=== PATIENT | male | born 1975 | race Two or more races ===

== ENCOUNTER 2017-07-30 20:00 | Emergency (ER) | payer OTHER ==
[2017-07-31] MEDS: traMADol 50 MG TAB PO (00:44)
== END 2017-07-31 01:52 | disposition home or self-care (01) ==
LOC: M ED 20:00
DX: S60.212A Contusion of left wrist, initial encounter (principal); W00.9XXA Unspecified fall due to ice and snow, initial encounter; Y92.9 Unspecified place or not applicable; Y93.9 Activity, unspecified; Z88.0 Allergy status to penicillin
CPT/HCPCS: 73110

== ENCOUNTER 2018-06-04 11:57 | Emergency (ER) | payer OTHER ==
[2018-06-04] MEDS: NS 1,000 ML IV (12:15)
[2018-06-04 12:23] LABS: BEDSIDE GLUCOSE 337 MG/DL (70-105)
[2018-06-04 12:34] LABS: VENOUS BASE EXCESS -3.1 (-2.0-2.0); VENOUS HCO3 21.7 MEQ/L (23.0-27.0); VENOUS O2 SATURATION 90.5 % (60.0-80.0); VENOUS PARTIAL PRESSURE CO2 38.4 mmHg (38.0-50.0); VENOUS PARTIAL PRESSURE O2 59.6 mmHg (30.0-50.0); VENOUS STANDARD HCO3 21.7 MEQ/L; VENOUS TOTAL CO2 22.9 MEQ/L (24.0-28.0)
[2018-06-04 12:39] LABS: BASO % 0.4 % (0.0-1.0); EOS # 0.1 10^3/uL (0.0-0.50); EOS % 1.7 % (0.0-3.0); HEMATOCRIT 42.4 % (42.0-52.0); HEMOGLOBIN 15.3 g/dl (13.5-17.5); IMMATURE GRANULOCYTE % 0.2 % (0-3.0); LYMPH # 2.5 10^3/uL (1.5-4.5); LYMPH % 52.9 % (24.0-44.0); MEAN CORPUSCULAR HEMOGLOBIN 30.5 pg (27.0-33.0); MEAN CORPUSCULAR HGB CONC 36.1 g/dl (32.0-36.5); MEAN CORPUSCULAR VOLUME 84.6 fl (80.0-96.0); MONO # 0.5 10^3/uL (0.0-0.8); MONO % 11.6 % (0.0-5.0); NEUTROPHILS # 1.5 10^3/uL (1.8-7.7); NEUTROPHILS % 33.2 % (36.0-66.0); PLATELET COUNT, AUTOMATED 239 10^3/uL (150-450); RED BLOOD COUNT 5.01 10^6/uL (4.30-6.10); RED CELL DISTRIBUTION WIDTH 11.6 % (11.5-14.5); WHITE BLOOD COUNT 4.7 10^3/uL (4.0-10.0)
[2018-06-04 13:05] LABS: ALBUMIN 4.1 GM/DL (3.2-5.2); ALBUMIN/GLOBULIN RATIO 1.32 (1.00-1.93); ALKALINE PHOSPHATASE 89 U/L (45-117); ALT/SGPT 125 U/L (12-78); ANION GAP 9 MEQ/L (8-16); AST/SGOT 47 U/L (7-37); BILIRUBIN,DIRECT 0.2 MG/DL (0.0-0.2); BILIRUBIN,TOTAL 0.5 MG/DL (0.2-1.0); BLOOD UREA NITROGEN 14 MG/DL (7-18); CALCIUM LEVEL 9.1 MG/DL (8.5-10.1); CARBON DIOXIDE LEVEL 26 MEQ/L (21-32); CHLORIDE LEVEL 101 MEQ/L (98-107); CREATININE FOR GFR 0.96 MG/DL (0.70-1.30); GLOMERULAR FILTRATION RATE > 60.0 (>60); GLUCOSE, FASTING 332 MG/DL (70-100); LIPASE 156 U/L (73-393); POTASSIUM SERUM 4.5 MEQ/L (3.5-5.1); SODIUM LEVEL 136 MEQ/L (136-145); TOTAL PROTEIN 7.2 GM/DL (6.4-8.2)
[2018-06-04 13:25] LABS: ACETONE/KETONE 8.45 MG/DL (<2.81); ETHYL ALCOHOL (ETHANOL) < 0.003 % (0.000-0.010)
[2018-06-04 13:28] LABS: KETONE, URINE AUTO RFX 1+ mg/dL (NEGATIVE); LEUKOCYTE ESTERASE UR AUTO RFX NEGATIVE (NEGATIVE); NITRITE, URINE AUTO RFX NEGATIVE (NEGATIVE); RBC, URINE AUTO RFX 1 /HPF (0-3); SPECIFIC GRAVITY UR AUTO RFX 1.031 (1.002-1.035); SQUAM EPITHELIAL CELL UR AURFX 0 /HPF (0-6); WBC, URINE AUTO RFX 1 /HPF (0-3)
[2018-06-04] MEDS: metFORMIN (GLUCOPHAGE) 500 MG TAB PO (15:01)
[2018-06-04 15:15] LABS: ESTIMATED AVERAGE GLUCOSE 235 MG/DL (60-110); HEMOGLOBIN A1c 9.8 %
== END 2018-06-04 15:57 | disposition home or self-care (01) ==
LOC: M ED 11:57
DX: E11.9 Type 2 diabetes mellitus without complications (principal); Z79.899 Other long term (current) drug therapy; Z88.0 Allergy status to penicillin
CPT/HCPCS: 93005

== ENCOUNTER → 2018-09-28 | Outpatient (CLI) | payer OTHER ==
[~2018-09-28] MED LIST: AMIT25TA PO; D-CA1KIT XX; IBUP80TA; METF500T13 PO
[2018-09-28 13:51] LABS: INR 1.06; PARTIAL THROMBOPLASTIN TIME 28.7 SECONDS (25.4-37.6); PROTHROMBIN TIME 13.9 SECONDS (12.1-14.4)
[2018-09-28 14:31] LABS: ALBUMIN 4.7 GM/DL (3.2-5.2); ALT/SGPT 33 U/L (12-78); BILIRUBIN,DIRECT 0.2 MG/DL (0.0-0.2); BILIRUBIN,TOTAL 0.5 MG/DL (0.2-1.0); CHOLESTEROL LEVEL 138 MG/DL (<200); CHOLESTEROL RISK RATIO 2.509 (<5); FERRITIN 142 NG/ML (26-388); HDL CHOLESTEROL 55 MG/DL (>40); IRON (FE) 131 UG/DL (65-175); LDL CHOLESTEROL 65 MG/DL (<100); NON-HDL-C 83 MG/DL; TOTAL IRON BINDING CAPACITY 374 UG/DL (250-450); TOTAL PROTEIN 7.7 GM/DL (6.4-8.2); TRIGLYCERIDES LEVEL 89 MG/DL (<150)
[2018-09-29 10:59] LABS: HEPATITIS B SURFACE ANTIBODY NEGATIVE (POSITIVE)
[2018-09-29 11:09] LABS: HEPATITIS B SURFACE ANTIGEN NEGATIVE (NEGATIVE)
[2018-09-29 11:37] LABS: HEPATITIS C VIRUS ABY INDEX 0.1 INDEX (<0.8)
[2018-10-02 13:50] LABS: ANTI-MITOCHONDRIAL ANTIBODY <20.0 Units (0.0-20.0); ANTI-SMOOTH MUSCLE ANTIBODY 9 Units (0-19); ANTINUCLEAR ANTIBODIES DIRECT Negative (Negative); CERULOPLASMIN 20.1 mg/dL (16.0-31.0); HEPATITIS A IgG TOTAL Positive (Negative); HEPATITIS B CORE ANTIBODY IGG Negative (Negative); IGASUB3 61.2 mg/dL (13.4-97.9); IgA SERUM (part of Subclasses) 221 mg/dL (90-386); LIVER-KIDNEY MICROSOMAL ABY <20.1 Units (0.0-20.0); TISSUE TRANSGLUTAMINASE IgA 3 U/mL (0-3)
== END ==
LOC: M LAB 12:35
PROVIDERS: ATTEND Internal Medicine Gastroenterology
DX: R94.5 Abnormal results of liver function studies (principal)

== ENCOUNTER → 2018-10-07 | Outpatient (CLI) | payer OTHER ==
--- NOTE | 2018-10-07 09:49 | REP ---
MRI RIGHT ANKLE: TECHNIQUE: Sagittal proton density, STIR, axial proton density fat sat, T1, coronal proton density, STIR. The Achilles tendon is intact. There has been prior surgery at the posterior calcaneus, at the distal Achilles insertion site with a single suture anchor in the posterior aspect of the calcaneus. There is very mild marrow edema in the posterolateral aspect of the calcaneus. There is very mild ill-defined soft tissue edema anterior to the distal Achilles tendon, just superior to the calcaneus. No other abnormal bone marrow signal is seen. The Anterior tibial posterior, flexor hallucis longus, flexor digitorum longus and peroneal tendons are all intact without significant tenosynovitis. The anterior and posterior talofibular, calcaneal fibular and deltoid ligaments appear intact. Plantar tendon is intact. There is no evidence of plantar fasciitis. There is a normal amount of joint fluid. No ganglion cyst is seen. No osteochondral defect is seen at the tibiotalar joint. IMPRESSION: Single suture anchor in the posterior calcaneus at the distal Achilles tendon insertion site. Very mild narrow edema is seen in the posterolateral calcaneus. Mild ill-defined soft tissue edema anterior to the distal Achilles tendon may represent mild peritenonitis. I see no other significant finding. Electronically Signed by Wilfredo Schuster MD 10/07/2018 03:12 P
== END ==
LOC: M RAD 07:23
PROVIDERS: ATTEND Physician Assistant Surgical
DX: M76.61 Achilles tendinitis, right leg (principal); Z98.890 Other specified postprocedural states

== ENCOUNTER → 2018-10-25 | Outpatient (CLI) | payer OTHER ==
--- NOTE | 2018-10-28 19:30 | SLEEPCENT ---
DATE OF PROCEDURE: 10/25/2018 ORDERED BY: Daisy Jewell Nocturnal polysomnography was performed for evaluation of sleep physiology in this patient with difficulty with sleep maintenance. 6 hours and 14 minutes of data were reviewed. There were 257 minutes of sleep identified. Sleep latency was normal at 10 minutes, rapid eye movement (REM) sleep was delayed at 146 minutes. Sleep architecture showed fragmentation and frequent brief arousals. Overall sleep efficiency was 72%. The electrocardiogram showed a sinus rhythm with an average heart rate of 65 beats per minute. EEG showed coarsening in background possibly medication effect. There were only four respiratory events identified of 10 seconds in duration or greater for an apnea-hypopnea index of 0.9. Snoring was noted but arousals from respiratory events occurred only 0.4 times per hour in total. There were no significant oxygen desaturations. Significant activity was, however, seen in the limb leads. There was only one train of 30 events but limb movement arousal index 12.1. IMPRESSION: Periodic limb movement disorder (G47.61). Limb movement arousal index 12.1. RECOMMENDATIONS: Interventions to reduce the frequency of arousal from limb activity should improve the patient's continuity of sleep.
== END ==
LOC: M SLEEP 20:06
PROVIDERS: ATTEND Nurse Practitioner Adult Health
DX: G47.61 Periodic limb movement disorder (principal)

== ENCOUNTER 2018-11-07 21:22 | Emergency (ER) | payer OTHER ==
[~2018-11-07] VITALS: Ht 172.7 cm; Wt 79.1 kg
[2018-11-07] MEDS ORDERED: methylPREDNISolone SUSP 40 MG/ML (DEPO-medrol) VIAL (J1030) IM ONE (23:15)
[2018-11-07 23:28] VITALS: BP 126/74
== END 2018-11-07 23:33 | disposition home or self-care (01) ==
LOC: M ED 21:22
DX: M54.32 Sciatica, left side (principal); E11.9 Type 2 diabetes mellitus without complications; Z79.84 Long term (current) use of oral hypoglycemic drugs; Z88.0 Allergy status to penicillin
CPT/HCPCS: 96372; 99284; J1030

== ENCOUNTER 2018-12-01 06:14 | Day surgery (SDC) | payer OTHER ==
[~2018-12-01] VITALS: Ht 172.7 cm; Wt 75.3 kg
[~2018-12-01 06:14] MED LIST changes: +CLINDAMYCIN 600 MG in APPROPRIATE DILUENT 1 EA IV ONE; +DULO1CAP2 PO; +IBUP-1114 PO; +LR 1,000 ML IV ONE; +META1TAB22 PO; +ROPI0.5T PO; +SIMV20TA2 PO; +TIZA4TAB4 PO
[2018-12-01] MEDS ORDERED: PROPOFOL 200 MG/20 ML VIAL As Ordered ONE (07:04)
[2018-12-01] MEDS ORDERED: LIDOCAINE 2% INJ 100 MG/5 ML SDV (FOR ANES.) As Ordered ONE (07:04)
[2018-12-01] MEDS ORDERED: MIDAZOLAM INJ 2 MG/2 ML VIAL (J2250) As Ordered ONE (07:05)
[2018-12-01] MEDS ORDERED: fentaNYL 100 MCG/2 ML INJECTION (J3010) As Ordered ONE (07:05)
[2018-12-01] MEDS ORDERED: ONDANSETRON 4MG/2ML VIAL (J2405) As Ordered ONE (07:05)
[2018-12-01] MEDS ORDERED: BUPIVACAINE HCL 0.5% 10 ML VIAL As Ordered ONE (07:09)
[2018-12-01] MEDS ORDERED: LIDOCAINE 1% MDV 20ML VIAL As Ordered ONE (07:09)
[2018-12-01] MEDS ORDERED: dexameTHASONE 4 MG/ML 1ML VIAL (J1100) As Ordered ONE (07:18)
[2018-12-01] MEDS ORDERED: KETOROLAC 60 MG/2 ML VIAL (J1885) As Ordered ONE (07:58)
[2018-12-01] MEDS ORDERED: NORCO, ANEXSIA 5/325MG TABLET (HYDROcodone/ACETAMINOPHEN) As Ordered ONE (09:18)
[2018-12-01] MEDS ORDERED: fentaNYL 100 MCG/2 ML INJECTION (J3010) IV PRN (09:30)
[2018-12-01] MEDS ORDERED: NORCO, ANEXSIA 5/325MG TABLET (HYDROcodone/ACETAMINOPHEN) PO PRN (09:30)
[2018-12-01] MEDS ORDERED: LR 1,000 ML IV SCH (09:30)
[2018-12-01] MEDS ORDERED: ONDANSETRON 4MG/2ML VIAL (J2405) IV PRN (09:30)
[2018-12-01 09:50] VITALS: BP 122/81
--- NOTE | 2018-12-01 10:43 | RO ---
DATE OF PROCEDURE: 12/01/2018 PREPROCEDURE DIAGNOSIS: Right gastrocnemius/Achilles equinus. POSTPROCEDURE DIAGNOSIS: Right gastrocnemius/Achilles equinus. PROCEDURE: Right gastrocnemius recession. SURGEON: Dr. Sathya Jin [facility]: ANESTHESIA: Monitored anesthesia care. Preoperative injection of 20 mL of 1:1 mixture of 1% lidocaine plain and 1/2% Marcaine plain. ESTIMATED BLOOD LOSS: Minimal. MATERIALS: #4-0 Vicryl, #4-0 nylon. INJECTABLES: None. COMPLICATIONS: None. CONDITION: Stable. DESCRIPTION OF PROCEDURE: Herrera Mijares is a 43-year-old male who presents to [facility] with chronic painful Achilles tendon. He has had posterior heel surgery, but persists with tightness and pulling sensation in the back of his calf. He presents today for release of the gastrocnemius tendon aponeurosis. The patient site and side were identified and marked in preoperative holding area. Consent was reviewed and obtained. The risks, complications and alternatives to the procedure were explained to the patient in detail and all questions were answered. The patient was brought to the operating room and placed on the operating room table in supine position. Monitored anesthesia care was given by the anesthesia team. The patient was transferred to prone position. Preoperative injection of 20 mL of 1:1 mixture of 1% lidocaine plain and 0.25% Marcaine plain were injected to the calf. The patient received clindamycin preoperatively. A tourniquet was applied to the right thigh and inflated at 250 mmHg. A linear incision was made at the mid point of the calf just medial to the center line. Incision was made with #15 blade. Dissection was carried until the gastrocnemius fascia was identified. The sural nerve was identified and protected during the procedure. A transverse tenotomy was performed taking care not to cut into the muscle belly. Plantaris tendon was noted to be restricting motion and this too was resected. Improvement in dorsiflexion at the ankle was noted. The site was irrigated with normal saline. The incision was closed with #4-0 Vicryl and #4-0 nylon. Sterile dressings were applied. The tourniquet was deflated. A posterior splint was applied. The patient was brought to the postanesthesia care unit (PACU) with vital signs stable and neurovascular status intact. He will be nonweight bearing with crutches. He will followup in the office in two days.
== END 2018-12-01 10:32 | disposition home or self-care (01) ==
LOC: M SDC 06:14
PROVIDERS: ATTEND Podiatrist Foot & Ankle Surgery
DX: M24.571 Contracture, right ankle (principal); K21.9 Gastro-esophageal reflux disease without esophagitis; F41.9 Anxiety disorder, unspecified; Z88.0 Allergy status to penicillin; Z79.84 Long term (current) use of oral hypoglycemic drugs; E11.9 Type 2 diabetes mellitus without complications; G25.81 Restless legs syndrome; Z79.899 Other long term (current) drug therapy
CPT/HCPCS: 27687; J1100; J1885; J2250; J2405; J3010

== ENCOUNTER 2019-03-09 13:05 | Emergency (ER) | payer OTHER ==
[~2019-03-09] VITALS: Ht 172.7 cm; Wt 78.2 kg
[~2019-03-09 13:05] MED LIST changes: -CLINDAMYCIN 600 MG in APPROPRIATE DILUENT 1 EA IV ONE; -DULO1CAP2 PO; +DULO1CAP5 PO; -LR 1,000 ML IV ONE; -SIMV20TA2 PO; +SIMV20TA22 PO
[2019-03-09] MEDS ORDERED: OXYC1TAB23 (13:21)
[2019-03-09] MEDS ORDERED: TOPI25TA10 (13:21)
[2019-03-09] MEDS ORDERED: diphenhydrAMINE 25 MG CAP PO ONE (15:15)
[2019-03-09] MEDS ORDERED: ACETAMINOPHEN 500 MG TAB PO ONE (15:15)
[2019-03-09] MEDS ORDERED: IBUPROFEN 600 MG TAB PO ONE (15:15)
--- NOTE | 2019-03-09 15:40 | REP ---
Clinical: Headache and right facial numbness . Comparison: None . Findings: The ventricles, sulci, and cisterns are normal in position and appearance. Schuster-white differentiation is maintained. No acute intracranial hemorrhage, mass/mass effect, pathology or trauma/injury. No evidence for acute infarction. No extra-axial fluid collection. Calvarium is intact. Paranasal sinuses and mastoid air cells are clear. Impression: Normal noncontrast head CT. No evidence for acute intracranial pathology or trauma/injury. Electronically Signed by Gerry Gaona MD 03/09/2019 03:32 P
[2019-03-09 15:47] LABS: HEMATOCRIT 48.2 % (42.0-52.0); HEMOGLOBIN 16.9 g/dl (13.5-17.5); MEAN CORPUSCULAR HEMOGLOBIN 31.3 pg (27.0-33.0); MEAN CORPUSCULAR HGB CONC 35.1 g/dl (32.0-36.5); MEAN CORPUSCULAR VOLUME 89.3 fl (80.0-96.0); PLATELET COUNT, AUTOMATED 251 10^3/uL (150-450); WHITE BLOOD COUNT 5.7 10^3/uL (4.0-10.0)
[2019-03-09 16:23] LABS: BLOOD UREA NITROGEN 14 MG/DL (7-18); CALCIUM LEVEL 10.2 MG/DL (8.5-10.1); CARBON DIOXIDE LEVEL 29 MEQ/L (21-32); CHLORIDE LEVEL 102 MEQ/L (98-107); CREATININE FOR GFR 0.94 MG/DL (0.70-1.30); FREE T4 1.24 NG/DL (0.76-1.46); GLOMERULAR FILTRATION RATE > 60.0 (>60); GLUCOSE, FASTING 99 MG/DL (70-100); MAGNESIUM LEVEL 2.1 MG/DL (1.8-2.4); POTASSIUM SERUM 4.3 MEQ/L (3.5-5.1); SODIUM LEVEL 139 MEQ/L (136-145); THYROID STIMULATING HORMONE 0.536 uIU/ML (0.358-3.740)
[2019-03-09 17:19] VITALS: BP 141/88
[2019-03-09] MEDS ORDERED: TOPI50TA9 PO (17:33)
== END 2019-03-09 17:59 | disposition home or self-care (01) ==
LOC: M ED 13:05
DX: G43.909 Migraine, unspecified, not intractable, without status migrainosus (principal); E11.9 Type 2 diabetes mellitus without complications; E78.5 Hyperlipidemia, unspecified; F33.9 Major depressive disorder, recurrent, unspecified; F41.9 Anxiety disorder, unspecified; Z79.899 Other long term (current) drug therapy; Z79.84 Long term (current) use of oral hypoglycemic drugs; Z88.0 Allergy status to penicillin

== ENCOUNTER → 2019-12-21 | Outpatient (REF) | payer OTHER ==
[~2019-12-21] MED LIST changes: +OXYC1TAB23; -ROPI0.5T PO; +ROPI0.5T3 PO; +TOPI25TA10; +TOPI50TA9 PO
[2019-12-21 16:02] LABS: MALB URINE SIEMENS 13.5 MG/L; MAU/CREAT RATIO 7.1 MCG/MG (0.0-30.0)
== END ==
LOC: M LAB REF 15:07
PROVIDERS: ATTEND Nurse Practitioner Family
DX: E10.65 Type 1 diabetes mellitus with hyperglycemia (principal)

== ENCOUNTER 2020-06-26 08:30 | Outpatient (RCR) | payer OTHER | END 2020-07-05 | LOC: M OT 08:30 | PROVIDERS: ATTEND Orthopaedic Surgery | DX: Z47.89 Encounter for other orthopedic aftercare (principal); G56.22 Lesion of ulnar nerve, left upper limb; G56.02 Carpal tunnel syndrome, left upper limb ==

== ENCOUNTER → 2020-06-28 | Outpatient (CLI) | payer SELFPAY | LOC: M LABSMTC 13:55 | PROVIDERS: ATTEND Pediatrics | DX: Z20.828 Contact with and (suspected) exposure to other viral communicable diseases (principal) ==

== ENCOUNTER → 2020-07-05 | Outpatient (CLI) | payer SELFPAY | LOC: M LABSMTC 13:29 | PROVIDERS: ATTEND Pediatrics | DX: Z20.828 Contact with and (suspected) exposure to other viral communicable diseases (principal) ==

== ENCOUNTER 2020-07-26 14:30 | Outpatient (RCR) | payer OTHER ==
[~2020-07-26 14:30] MED LIST changes: -AMIT25TA PO; +AMIT25TA17 PO
== END 2020-08-05 ==
LOC: M OT 14:30
PROVIDERS: ATTEND Orthopaedic Surgery
DX: Z47.89 Encounter for other orthopedic aftercare (principal); G56.22 Lesion of ulnar nerve, left upper limb; G56.02 Carpal tunnel syndrome, left upper limb

== ENCOUNTER → 2021-01-22 | Outpatient (REF) | payer OTHER ==
[2021-01-22 19:26] LABS: CREATININE, URINE 41.4 MG/DL; MALB URINE SIEMENS < 5.0 MG/L
== END ==
LOC: M LAB REF 16:47
PROVIDERS: ATTEND Nurse Practitioner Family
DX: E10.65 Type 1 diabetes mellitus with hyperglycemia (principal)